=== PATIENT | male | born 1940 | race Caucasian/White ===

== ENCOUNTER → 2016-07-09 | Outpatient (CLI) | payer BC, OTHER ==
[~2016-07-09] MED LIST: ASPI81TA28 PO; CARB25TA16 PO; CHOL100027 PO; CLC100X PO; DONE5TAB14 PO; INSDGIPEN SC; LEVE500T13 PO; LEVO150T PO; LEVO75TA PO; LISI-461 PO; MEMA10TA PO; METO-551 PO; MULTTAB PO; PRAV20TA2 PO; PRS5 PO; SERT100T PO; TAMS0.4C59 PO; [UNRECOGNIZED DRUG - CODE] IV; [UNRECOGNIZED DRUG - CODE] PO
== END ==
LOC: C.LABCC 07:38
PROVIDERS: ATTEND Internal Medicine
DX: R56.9 Unspecified convulsions (principal)

== ENCOUNTER → 2016-09-02 | Outpatient (CLI) | payer BC, OTHER ==
[2016-09-02 09:00] LABS: ALT/SGPT 34 U/L (12-78); AST/SGOT 36 U/L (15-37); BLOOD UREA NITROGEN 10 mg/dl (7-18); BUN/CREATININE RATIO 14.3 (10-20); CARBON DIOXIDE 33 mmol/L (21-32); CHLORIDE 99 mmol/L (98-107); CHOLESTEROL 167 mg/dl (0-200); CREATININE 0.69 mg/dl (0.60-1.40); GLUCOSE 111 mg/dl (70-99); POTASSIUM 3.7 mmol/L (3.5-5.1); SODIUM 137 mmol/L (136-145); TRIGLYCERIDES 276 mg/dl (0-150); VERY LOW DENSITY LIPOPROT CALC 55 mg/dl
[2016-09-02 09:10] LABS: ALB/GLOB RATIO 0.7 (0.9-2); ALKALINE PHOSPHATASE 71 U/L (45-117); CHOLESTEROL/HDL RATIO 4.8; HDL CHOLESTEROL 35 mg/dl; LDL CHOLESTEROL CALCULATED 77 mg/dl
== END ==
LOC: C.LABCC 08:29
PROVIDERS: ATTEND Internal Medicine
DX: E78.9 Disorder of lipoprotein metabolism, unspecified (principal); E03.9 Hypothyroidism, unspecified

== ENCOUNTER → 2016-09-09 | Outpatient (CLI) | payer BC, OTHER ==
[2016-09-09 08:54] LABS: BASO % 0.3 %; BASO ABS # 0.02 K/uL (0-0.2); COMPLETE YES; EOS % 3.2 %; HEMATOCRIT 42.9 % (42-52); IG% 0.3 %; LYMPH ABS # 1.71 K/uL (1.2-3.4); MEAN CELL VOLUME 90.5 fL (80-100); MEAN CORPUSCULAR HEMOGLOBIN 30.4 pg (25-34); MEAN CORPUSCULAR HGB CONC 33.6 g/dl (32-36); MEAN PLATELET VOLUME 10.8 fL (7.4-10.4); MONO % 7.4 %; NEUT % 66.8 %; PLATELET COUNT 125 K/uL (130-400); RED BLOOD COUNT 4.74 M/uL (4.7-6.1); WHITE BLOOD COUNT 7.79 K/uL (4.8-10.8)
[2016-09-09 08:55] LABS: BLOOD UREA NITROGEN 14 mg/dl (7-18); BUN/CREATININE RATIO 20.1 (10-20); CALCIUM 9.1 mg/dl (8.5-10.1); CARBON DIOXIDE 29 mmol/L (21-32); CHLORIDE 101 mmol/L (98-107); CREATININE 0.69 mg/dl (0.60-1.40); GLUCOSE 131 mg/dl (70-99); POTASSIUM 3.9 mmol/L (3.5-5.1); SODIUM 139 mmol/L (136-145)
== END ==
LOC: C.LABCC 08:27
PROVIDERS: ATTEND Internal Medicine
DX: Z01.812 Encounter for preprocedural laboratory examination (principal)

== ENCOUNTER → 2016-10-18 | Outpatient (CLI) | payer BC, OTHER ==
[2016-10-18 09:03] LABS: ESTIMATED AVERAGE GLUCOSE 157 mg/dl; HA1C FLAG Normal (Normal)
== END ==
LOC: C.LABCC 08:24
PROVIDERS: ATTEND Internal Medicine
DX: E11.9 Type 2 diabetes mellitus without complications (principal)

== ENCOUNTER → 2016-11-05 | Outpatient (CLI) | payer BC, OTHER ==
[2016-11-05 18:29] LABS: MANUAL MICROSCOPIC REQUIRED? NO; REVIEW REQ? NO; URINE APPEARANCE TURBID (CLEAR); URINE COLOR DK YELLOW; URINE NITRITE POS (NEG); URINE PH 5.5 (4.5-7.5); URINE SPECIFIC GRAVITY 1.039 (1.000-1.030); UROBILINOGEN NEG (NEG)
[2016-11-05 18:30] LABS: URINE BILIRUBIN NEG (NEG)
== END ==
LOC: C.LABCC 11:30
PROVIDERS: ATTEND Internal Medicine
DX: R50.9 Fever, unspecified (principal)